=== PATIENT | female | born 1985 | race African-American/Black ===

== ENCOUNTER 2016-12-23 05:44 | Day surgery (SDC) | payer MEDICAID ==
[2016-12-22 10:19] LABS: APPEARANCE,URINE CLEAR; BILIRUBIN,URINE NEGATIVE (NEGATIVE); GLUCOSE, URINE NEGATIVE (NEGATIVE); KETONES,URINE NEGATIVE (NEGATIVE); LEUKOCYTE ESTERASE,URINE NEGATIVE (NEGATIVE); NITRITE,URINE NEGATIVE (NEGATIVE); PROTEIN,URINE NEGATIVE (NEGATIVE); URINE SPECIFIC GRAVITY 1.015; UROBILINOGEN,URINE NEGATIVE mg/dL (<2.0)
[2016-12-22 10:30] LABS: HEMATOCRIT 38.2 % (36.0-47.0); HEMOGLOBIN 11.6 g/dL (12.0-15.5); HGB HCT DIFFERENCE -3.4; MEAN CORPUSCULAR HEMOGLOBIN 23.7 pg (27.0-33.4); MEAN CORPUSCULAR HGB CONC 30.3 g/dL (32.0-36.0); MEAN CORPUSCULAR VOLUME 78 fl (80-97); RED BLOOD COUNT 4.88 10^6/uL (3.72-5.28); RED CELL DISTRIBUTION WIDTH 22.6 % (11.5-14.0); WHITE BLOOD COUNT 6.8 10^3/uL (4.0-10.5)
[~2016-12-23 05:44] MED LIST: LACTATED RINGERS 1000 ML IV PRN; LIDOCAINE 0.5% INJ-PF (5 MG/ML) 50 ML SDV SUBCUT PRN
[2016-12-23] MEDS ORDERED: FENTANYL CITRATE INJ/PF 250 MCG/5 ML AMPULE ONE (07:24)
[2016-12-23] MEDS ORDERED: PROPOFOL INJ 200 MG/20 ML VIAL IV ONE (07:25)
[2016-12-23] MEDS ORDERED: MIDAZOLAM 2 MG/2 ML INJ ONE (07:25)
[2016-12-23] MEDS ORDERED: CEFAZOLIN INJ 1 GM VIAL ONE (08:13)
[2016-12-23] MEDS ORDERED: OXYCODONE-ACETAMINOPHEN 5-325 MG TABLET PO PRN ×2 (08:22→08:23)
[2016-12-23] MEDS ORDERED: MORPHINE SULFATE 10 MG/ML INJ IM PRN (09:00)
[2016-12-23] MEDS ORDERED: IBUPROFEN 800 MG TABLET PO PRN (09:00)
--- NOTE | 2016-12-23 09:03 | OPERATIVE REPORT E ---
Operative Report NAME: MIGUEL SALCEDO : 1985 AGE: 31Y DATE OF SURGERY: 12/23/2016 ROOM: PREOPERATIVE DIAGNOSIS: Patient desiring sterilization. POSTOPERATIVE DIAGNOSIS: Patient desiring sterilization. SURGEON: Jacinto Marques D.O. ELECTRICAL INTERN: None. PROCEDURE: Diagnostic hysteroscopic examination. ANESTHESIA: General endotracheal anesthesia. COMPLICATIONS: Uterine perforation. ESTIMATED BLOOD LOSS: Less than 10 mL. PATHOLOGY: None. FINDINGS: 1. Uterine sounded to 8 cm. 2. Small uterine perforation on the anterior wall of the uterus that was hemostatic. DESCRIPTION OF PROCEDURE: The patient was taken to the operating room where she was placed in the dorsal supine position upon the operating table. She was then administered anesthesia. Once this was done, she was placed in the dorsal lithotomy position with Harjinder stirrups. She was then prepped and draped in normal sterile fashion. An open-sided speculum was then placed inside the patient's vagina. The cervix was easily visualized and grasped upon the anterior lip with a single-toothed tenaculum. The uterus was then sounded to 8 cm. The cervix was dilated up to a 24-Russian using the Hegar dilators. Inserting the hysteroscope to perform the diagnostic hysteroscopic examination prior to the Essure being performed, the hysteroscope exam revealed a uterine perforation on the anterior wall of the uterus that was hemostatic. As a result of this, the Essure procedure was abandoned. A single-toothed tenaculum was then removed off the patient's anterior lip of the cervix as well as every other instrument in the patient's vagina was removed. At this point in time, the procedure was abandoned. All sponge, lap, and needle counts were correct x2. The patient tolerated the procedure well. The patient was taken to the recovery room in stable condition. DICTATING PHYSICIAN: Jacinto Marques DO [id number] PHY#: [id number] ID: [id number] JOB#: [id number] ACCT: [id number] cc:Jacinto Marques D.O. >
[2016-12-23] MEDS ORDERED: CEFAZOLIN 2 GM/D5W RTU 2 GM/50 ML RTUPB IV ONE (09:15)
[2016-12-23] MEDS ORDERED: DEXAMETHASONE SOD PHOSPHATE INJ 4 MG/1 ML VIAL ONE (10:22)
[2016-12-23] MEDS ORDERED: GLYCOPYRROLATE INJ 0.4 MG/2 ML VIAL ONE (10:22)
[2016-12-23] MEDS ORDERED: LIDOCAINE 2% INJ-PF (20 MG/ML) 10 ML AMPUL ONE (10:22)
[2016-12-23] MEDS ORDERED: METOCLOPRAMIDE HCL INJ/PF 10 MG/2 ML SDV ONE (10:22)
[2016-12-23] MEDS ORDERED: SUCCINYLCHOLINE CHLORIDE INJ 200 MG/10 ML VIAL ONE (10:22)
[2016-12-23] MEDS ORDERED: ONDANSETRON HCL INJ/PF 4 MG/2 ML SDV ONE (10:22)
[2016-12-23 10:44] VITALS: BP 107/70
== END 2016-12-23 10:05 | disposition home or self-care (01) ==
LOC: OROUT 05:44
PROVIDERS: ATTEND Obstetrics & Gynecology
PROC: 0UJD8ZZ Inspection of Uterus and Cervix, Via Natural or Artificial Opening Endoscopic (ICD-10-PCS; principal; 2016-12-23 07:30)
DX: Z30.2 Encounter for sterilization (principal); S37.69XA Other injury of uterus, initial encounter; X58.XXXA Exposure to other specified factors, initial encounter
CPT/HCPCS: 36415; 85027; 81025; 81001; 58555; J2250; J0690; J1100; J3010; J3490 ×2; J2765; J0330; J2405; J2704; 952